=== PATIENT | female | born 1985 | race Caucasian/White ===

== ENCOUNTER 2022-08-10 17:45 | Emergency (ER) | payer OTHER ==
[2022-08-10 19:15] LABS: BASOPHIL 0.3 % (0-2); EOSINOPHIL 2.4 % (0-5); HCT 36.7 % (37.0-47.0); HGB 11.8 g/dl (12.5-16.0); MCH 27.1 pg (25.0-31.0); MCHC 32.2 g/dL (32.0-36.0); MCV 84.2 fL (78.0-100.0); MONOCYTE 7.1 % (0-12); MPV 10.9 fL (6.0-9.5); NEUTROPHIL 62.9 % (41-80); NRBC 0; PLT 276 K/uL (150-400); RBC 4.36 M/uL (4.20-5.40); RDW 14.4 % (11.5-14.0); WBC 8.9 K/uL (4.0-10.5)
[2022-08-10 19:19] LABS: BILIRUBIN NEGATIVE (NEGATIVE); BLOOD 3+ Ery/uL (NEGATIVE); CLARITY CLEAR (CLEAR); COLOR YELLOW (YELLOW); GLUCOSE (U) NORMAL (NORMAL); LEUKOCYTES 1+ Leu/uL (NEGATIVE); NITRITE NEGATIVE (NEGATIVE); PROTEIN NEGATIVE (NEGATIVE); UROBILINOGEN 0.2 mg/dL (0.2-1.0); pH 7.5 (5.0-9.0)
[2022-08-10 19:29] LABS: ALBUMIN 3.8 g/dL (3.4-5.0); BILIRUBIN - TOTAL 0.3 mg/dL (0.2-1.0); BUN/CREAT RATIO (CALC) 10.4 RATIO; CREATININE 0.77 mg/dL (0.51-0.95); GLOBULIN (CALCULATION) 3.7 g/dL; POTASSIUM 3.8 mmol/L (3.5-5.1); TOTAL PROTEIN 7.5 g/dL (6.4-8.2)
[2022-08-10 19:31] LABS: BACTERIA TRACE; URINARY RBC TNTC
[2022-08-10] MEDS ORDERED: VICODIN 10/3251 EACH PO (21:33)
[2022-08-10] MEDS ORDERED: ONDANSETRON HCL4 MG PO (21:33)
[2022-08-10] MEDS ORDERED: CIPRO500 MG PO (22:30)
[2022-08-10] MEDS ORDERED: DIFLUCAN 100MG100 MG PO (22:30)
== END 2022-08-10 22:33 | disposition home or self-care (01) ==
LOC: FER 17:45
PROVIDERS: Emergency Medicine
DX: N39.0 Urinary tract infection, site not specified (principal); R31.9 Hematuria, unspecified; J45.909 Unspecified asthma, uncomplicated; Z88.8 Allergy status to other drugs, medicaments and biological substances
CPT/HCPCS: 36415; 80053; 81001; 82150; 83690; 85025; J0696; J1170; J1885; J2270; J2405; J2550; J7030